=== PATIENT | male | born 1975 | race Caucasian/White ===

== ENCOUNTER 2016-04-02 12:55 | Outpatient (CLI) | payer OTHER | END 2016-04-02 13:27 | disposition home or self-care (01) | LOC: SLEEP 12:55 | PROVIDERS: ATTEND Registered Nurse | DX: G47.10 Hypersomnia, unspecified (principal); R06.83 Snoring ==

== ENCOUNTER → 2017-09-22 | Outpatient (CLI) | payer OTHER ==
--- NOTE | 2017-09-22 16:40 | Diagnostic Imaging Report ---
EXAMINATION: Lumbar spine. INDICATION: Bilateral hip pain. FINDINGS: AP, lateral, and spot lateral views were obtained. The lateral view shows that there is narrowing of the disc space at L3-L4 and that there is slight retrolisthesis of L3 with respect to L4. These findings are slightly worse than noted on the prior MRI lumbar spine exam of 01/26/2007. The alignment of the other vertebral bodies is generally within normal limits. The other intervertebral disc spaces are also fairly well maintained. There is no fracture or acute bony abnormality evident. There is no sign of a paraspinal mass. There is mild symmetrical sclerosis of the sacroiliac joints. IMPRESSION: 1. There is no evidence for an acute bony abnormality. 2. 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 If there is clinical concern regarding spinal stenosis or nerve root encroachment at this level, then MRI will be recommended for further study. 2. There is no acute bony abnormality noted. Dictated by: Dictated on workstation # [id number]
--- NOTE | 2017-09-22 16:53 | Diagnostic Imaging Report ---
EXAMINATION: Pelvis and bilateral hips. INDICATION: Hip pain. FINDINGS: Single AP view of the pelvis and AP and lateral views of the hips were obtained. There are no prior studies available for comparison. There is no fracture, dislocation, or acute bony abnormality evident. There is mild degenerative disease of the hip joints and the sacroiliac joints. The soft tissues are unremarkable. IMPRESSION: There is no evidence for an acute bony abnormality. Dictated by: Dictated on workstation # [id number]
== END ==
LOC: RAD 14:00
PROVIDERS: ATTEND Nurse Practitioner Family
DX: M51.36 Other intervertebral disc degeneration, lumbar region (principal)
CPT/HCPCS: 72100; 73523

== ENCOUNTER → 2021-07-22 | Outpatient (CLI) | payer OTHER ==
--- NOTE | 2021-07-22 12:32 | Diagnostic Imaging Report ---
INDICATION: No known injury. Looking for spurs. Pain. EXAMINATION: Right elbow, 07/22/2021. FINDINGS: Three views of the elbow. There is a focal spur along the lateral epicondyle with mild spurring along the radial head. There is a small osseous fragment versus spur adjacent to the medial border of the proximal ulna. Mild spurring is also seen along the posterior border of the ulna. There are no fractures or dislocations. No significant joint effusion. IMPRESSION: 1. Diffuse degenerative findings with no acute process appreciated. Dictated by: Dictated on workstation # [id number]
== END ==
LOC: RAD 10:29
PROVIDERS: ATTEND Nurse Practitioner Family
DX: M19.021 Primary osteoarthritis, right elbow (principal)
CPT/HCPCS: 73080